=== PATIENT | female | born 1980 | race Caucasian/White ===

== ENCOUNTER → 2019-10-31 | Outpatient (CLI) | payer OTHER ==
--- NOTE | 2019-10-31 16:12 | RAD ---
10/31/2019 INDICATION: Chronic cystitis. Dysuria. COMPARISON STUDY: None. Discussion: Ultrasound evaluation of the kidneys was performed. Static images are submitted to PACS. The kidneys are normal in appearance measuring 10.1 x 4.2 x 4.5 cm on the right and 10.1 x 4.2 x 5.1 cm on the left. There is no hydronephrosis, nephrolithiasis, or focal renal lesion. Visualized aorta and IVC are unremarkable. The bladder is nonvisualized secondary to decompressed state. IMPRESSION: Normal sonographic appearance of the kidneys Electronically signed by: Alonso Banks MD (10/31/2019 4:09 PM) [id number]
== END | disposition home or self-care (01) ==
LOC: US 09:41
PROVIDERS: ATTEND Urology
DX: N30.21 Other chronic cystitis with hematuria (principal)
CPT/HCPCS: 76770